=== PATIENT | male | born 1950 | race Caucasian/White ===

== ENCOUNTER 2017-09-24 14:27 | Outpatient (CLI) | payer OTHER ==
--- NOTE | 2017-09-24 16:29 | MRI ---
MRI OF LEFT SHOULDER PERFORMED WITHOUT CONTRAST ENHANCEMENT: Date: 09/24/17 HISTORY: Shoulder injury. FINDINGS: Some moderate AC joint hypertrophic change is present. There is extensive rotator cuff tear. This is a complete far anterior tear. AP dimension of the full thickness component of this tear approximates 9-10 mm. Some of the more outer bursal fibers are minim ally retracted, although there is retraction of the majority of the undersurface fibers by also appro ximately 10.0 mm. This extends as an undersurface tear into the supra and infraspinatus tendon region s and has a delaminating component extending into the musculotendinous junction of the infraspinatus tendon. There is also suggestion of involvement of the superior fibers of the subscapularis tendon, w hich are very thin in appearance. Biceps tendon does maintain a normal position within the bicipital groove. The interarticular portion of the biceps tendon is severely tendinopic in appearance and ther e is marked irregularity to the labrum near the biceps anchor attachment. There is a mass which follows fat density seen along the lateral aspect of the proximal humeral shaft . It is along the deep surface of the lateral or acromial component of the deltoid muscle. It measure s approximately 5.6 cm in size. It does not have any concerning features such as thickened septations or soft tissue mass component. There is rotator cuff atrophy with moderately severe atrophy of the subscapularis muscle. There is so me very mild atrophy of the infraspinatus and fairly pronounced atrophy of the teres minor muscle. Th ere is also moderate atrophy of the teres major muscle. IMPRESSION: 1. Full thickness, partial width, far anterior supraspinatus tendon. This tear does extend as a mode rate grade undersurface tear through the posterior half of the supraspinatus tendon, as well as into the infraspinatus tendon, where it has a delaminating component with fluid extending to the musculote ndinous junction. In addition, there is a partial tear of the superior fibers of the subscapularis te ndon. Biceps tendon does maintain normal position within the bicipital groove. 2. Moderate atrophy of the subscapularis muscle with some mild atrophy of the infraspinatus muscle. There is also fairly pronounced atrophy of the teres minor and teres major muscles. There is prominen t fat interspersed within the muscle planes. 3. Lipoma lying deep to the acromial or lateral aspect of the deltoid muscle which measures 5.6 cm i n size. It has overall benign-appearing features. 4. Very tendinopathic appearance to the interarticular portion of the biceps tendon with posterior s uperior labral degenerative tearing. POS: [facility]
== END 2017-09-24 14:28 | disposition home or self-care (01) ==
LOC: MRI 14:27
PROVIDERS: ATTEND Orthopaedic Surgery
DX: M25.512 Pain in left shoulder (principal); M75.102 Unspecified rotator cuff tear or rupture of left shoulder, not specified as traumatic; M62.512 Muscle wasting and atrophy, not elsewhere classified, left shoulder; D17.79 Benign lipomatous neoplasm of other sites

== ENCOUNTER 2017-11-26 10:24 | Outpatient (CLI) | payer OTHER ==
[2017-11-26 11:54] LABS: Hemoglobin 12.3 g/dL (14.0-18.0); Mean Corpuscular Hemoglobin 32.8 pg (27.0-31.0); Mean Corpuscular Volume 99.4 fl (80.0-94.0); Platelet Count 216 thou/uL (130-400); RBC Distribution Width 13.6 % (11.5-14.5); Red Blood Cell (RBC) Count 3.75 mill/uL (4.70-6.10); White Blood Cell (WBC) Count 6.1 thou/uL (4.8-10.8)
[2017-11-26 12:10] LABS: Anion Gap 10 mmol/L (10-20); BUN (Urea Nitrogen) 23 mg/dL (8.4-25.7); Calc. Creatinine Clearance 0 mL/min (70-130); Calcium 8.6 mg/dL (7.8-10.44); Carbon Dioxide 21 mmol/L (23-31); Chloride 108 mmol/L (98-107); Estimated GFR-MDRD 72; Glucose 156 mg/dL (80-115); Potassium 4.3 mmol/L (3.5-5.1); Sodium 135 mmol/L (136-145)
--- NOTE | 2017-11-26 20:28 | EKG ---
Test Reason : Blood Pressure : / mmHG Vent. Rate : 058 BPM Atrial Rate : 058 BPM P-R Int : 198 ms QRS Dur : 100 ms QT Int : 414 ms P-R-T Axes : 041 004 033 degrees QTc Int : 406 ms Sinus bradycardia Low voltage QRS Cannot rule out Anterior infarct , age undetermined Abnormal ECG When compared with ECG of 15-OCT-2016 13:36, QT has shortened Confirmed by MARY ELLEN LION (2) on 11/26/2017 8:27:42 PM Referred By: KIM Confirmed By:MARY ELLEN LION
== END 2017-11-26 10:25 | disposition home or self-care (01) ==
LOC: LABBT 10:24
PROVIDERS: ATTEND Orthopaedic Surgery
DX: Z01.818 Encounter for other preprocedural examination (principal); M75.102 Unspecified rotator cuff tear or rupture of left shoulder, not specified as traumatic; R94.31 Abnormal electrocardiogram [ECG] [EKG]
CPT/HCPCS: 80048; 85027; 93005; 93010

== ENCOUNTER 2017-11-27 05:38 | Day surgery (SDC) | payer OTHER ==
[2017-11-26 11:03] VITALS: BMI 43.2
[2017-11-27] MEDS ORDERED: CEFAZOLIN/Water 2 GM/20 ML SYRINGE ONE (06:17)
[2017-11-27] MEDS ORDERED: Midazolam HCl 2 mg/2 ml Vial ONE (06:18)
[2017-11-27] MEDS ORDERED: Fentanyl 100 MCG/2 ML VIAL ONE ×2 (06:18→06:55)
[2017-11-27] MEDS ORDERED: Lidocaine 2% Jelly 5 ML TUBE ONE (06:56)
[2017-11-27] MEDS ORDERED: Zolpidem Tartrate 5 MG TAB PO PRN (07:39)
[2017-11-27] MEDS ORDERED: Promethazine HCl 25 MG/ML VIAL IM PRN (07:39)
[2017-11-27] MEDS ORDERED: Ropivacaine HCl/PF 1,100 MG in Sodium Chloride 0.9% 440 ML NERVE BLCK SCH (07:39)
[2017-11-27] MEDS ORDERED: Ondansetron HCl/PF 4 MG/2 ML Vial IVP PRN (07:39)
[2017-11-27] MEDS ORDERED: traMADol HCl 50 MG TAB PO PRN ×2 (07:39)
[2017-11-27] MEDS ORDERED: HYDROcodone/Acetaminophen 10/325 mg Tablet PO PRN ×2 (07:39)
[2017-11-27] MEDS ORDERED: Fentanyl 100 MCG/2 ML VIAL IV PRN (07:39)
[2017-11-27] MEDS ORDERED: Bupivacaine/Epinephrine 0.25% 30 ML VIAL ONE (07:54)
[2017-11-27] MEDS ORDERED: PROPOFOL 200 MG/20 ML VIAL ONE (09:52)
[2017-11-27] MEDS ORDERED: Glycopyrrolate 0.2 MG/ML 5 ML SYRINGE ONE (09:52)
[2017-11-27] MEDS ORDERED: Ketorolac Tromethamine 30 MG/ML VIAL ONE (09:52)
[2017-11-27] MEDS ORDERED: ePHEDrine/0.9% NaCl/PF SYRINGE 50 mg/10 ml ONE (09:52)
[2017-11-27] MEDS ORDERED: Ondansetron HCl/PF 4 MG/2 ML Vial ONE (09:52)
[2017-11-27] MEDS ORDERED: Lidocaine 1% PF 5 ML VIAL ONE (09:52)
[2017-11-27] MEDS ORDERED: Ropivacaine 0.5% HCl/PF (150 MG/30 ML VIAL) ONE (11:51)
[2017-11-27] MEDS ORDERED: Ropivacaine 0.2% HCl/PF (40 MG/20 ML VIAL) ONE (11:51)
--- NOTE | 2017-11-27 15:04 | OP ---
DATE OF SURGERY: 11/27/2017 PREOPERATIVE DIAGNOSES: Full thickness tear, supraspinatus with partial thickness tear of the subsca pularis, biceps tendinosis, atrophy of subscapularis and atrophy of infraspinatus. POSTOPERATIVE DIAGNOSES: 1. High grade full thickness tear supraspinatus. 2. Partial tear, subscapularis. 3. Long head of the biceps rupture. 4. Grade III changes noted, glenoid and humeral head. PROCEDURES PERFORMED: 1. Left rotator cuff repair, arthroscopic. 2. Subacromial decompression. STAFF: Aidan Coronado M.D. CUSTOMIZER: None. ANESTHESIA: Cuong Johnson. The patient received general endotracheal intubation and interscalene block . ESTIMATED BLOOD LOSS: 30 mL. TOURNIQUET TIME: None. IMPLANTS: A 5.5 Arthrex, 5.5 Bio[employer]posite corkscrew and 5.5 SwiveLock. ANTIBIOTICS: Ancef 2 grams. COMPLICATIONS: None. HISTORY OF PRESENT ILLNESS: Mr. No is a pleasant 67-year-old male who presented to me with shou lder pain for about 6 months. The patient had pain, probably some bruising. MRI showed a full thick ness tear with previous biceps rupture. I discussed with patient the risks and benefits of arthrosco pic evaluation of rotator cuff repair to include pain, scar, bleeding, infection, damage to vital str uctures, decreased range of motion or strength, failure of procedure, continued pain despite surgical intervention. The patient understood the risks and benefits and elected to proceed. DESCRIPTION OF PROCEDURE: Time out was performed designating the patient's left upper extremity as t he operative site based on sight, consents, and markings. After time out, the patient's upper extrem ity was prepped and draped in sterile fashion. A posterior working portal and anterior working jey l placed and visualized intraarticularly. There was some grade III ALS full thickness changes throug hout the patient's humeral head as well as the glenoid. There were no large osteophytes or loose bod ies noted within the joint. The biceps had ruptured off. There was some synovitis noted within the joint and I could see an area where the cuff was torn intraarticularly. I debrided off some remnant tissues and moved subacromially and debrided the bursa and had a difficult time finding, what I could see on MRI was a high grade full thickness tear. I went back and tagged with a Prolene, stitched an d find the area and was able to fall into the full thickness defect and supraspinatus, which I cleane d off and created. I then did a subacromial decompression to smooth off the patient's acromion, rele ased the CA ligament, exposed entire rotator cuff, placed 5.5 corkscrew into the defect, put 2 horizo ntal mattress sutures and 1 anterior and 1 posterior, sewed them down and then used a double row late ral transosseous equivalent to help to sew it down laterally. I then took final pictures, washed and closed with 3-0 nylon. The patient will be placed in a shoulder abduction sling. Begin elbow, wrist, and hand motion, will follow with me in 2 weeks.
== END 2017-11-27 13:02 | disposition home or self-care (01) ==
LOC: SDC 05:38
PROVIDERS: ATTEND Orthopaedic Surgery
PROC: 0LQ24ZZ Repair Left Shoulder Tendon, Percutaneous Endoscopic Approach (ICD-10-PCS; principal; 2017-11-27)
PROC: 0RNK4ZZ Release Left Shoulder Joint, Percutaneous Endoscopic Approach (ICD-10-PCS; principal; 2017-11-27)
DX: M75.122 Complete rotator cuff tear or rupture of left shoulder, not specified as traumatic (principal); S46.112A Strain of muscle, fascia and tendon of long head of biceps, left arm, initial encounter; M65.812 Other synovitis and tenosynovitis, left shoulder; M19.012 Primary osteoarthritis, left shoulder; E11.9 Type 2 diabetes mellitus without complications; Z79.82 Long term (current) use of aspirin; Z79.84 Long term (current) use of oral hypoglycemic drugs; Z79.899 Other long term (current) drug therapy
CPT/HCPCS: C1713; J1885; J2001; J2250; J2405; J2704; J2795; J3010; J7050

== ENCOUNTER 2018-05-15 07:42 | Outpatient (CLI) | payer OTHER ==
--- NOTE | 2018-05-15 12:42 | MRI ---
MRI OF RIGHT SHOULDER PERFORMED WITHOUT CONTRAST ENHANCEMENT: HISTORY: Right shoulder pain. FINDINGS: There are moderate AC joint hypertrophic changes present. There is a full-thickness partial width yin praspinatus tendon tear. The full-thickness component of the tear involves more the anterior aspect of the tendon. It is retracted by approximately 7 mm with the AP dimension of the full-thickness com ponent of the tear in the 10 mm range. This does continue as an undersurface tear involving the post erior fibers also with tendinopathy change. There is a minimal delaminating component extending into the infraspinatus tendon which is otherwise intact. The subscapularis tendon is very thinned in appearance but appears intact and the biceps tendon is no rmal in position within the bicipital groove. I do not definitely see an intraarticular portion of t he biceps tendon. No definitive labral abnormalities are appreciated. There are some mild arthritic changes of the gle nohumeral joint space. There is mild atrophy to the infraspinatus muscle as well as supraspinatus muscles. There is severe atrophy of the teres minor muscle and marked atrophy to the subscapularis muscle. IMPRESSION: 1. Full-thickness partial-width supraspinatus tendon tear as discussed above. The tear does extend into the posterior half of the supraspinatus tendon and is a moderate undersurface tear and has some delaminating component as there is fluid seen at the musculotendinous junction of the infraspinatus. There is mild atrophy of the supra- and infraspinatus muscles. There is severe atrophy of the teres minor and superior half of the subscapularis muscles. 2. The intraarticular portion of the biceps tendon is not definitely identified. The biceps tendon within the bicipital groove is smaller. POS: [facility]
== END 2018-05-15 07:43 | disposition home or self-care (01) ==
LOC: TBSIIMAG 07:42
PROVIDERS: ATTEND Orthopaedic Surgery
DX: M25.511 Pain in right shoulder (principal); M75.101 Unspecified rotator cuff tear or rupture of right shoulder, not specified as traumatic

== ENCOUNTER 2025-03-10 08:00 | Outpatient (CLI) | payer OTHER ==
[2025-03-10 12:47] LABS: #Basophils 0.04 10x3/uL (0.0-0.2); #Eosinophils 0.15 10x3/uL (0.0-0.7); #Monocytes 0.33 10x3/uL (0.11-0.59); #Neutrophils 3.48 10x3/uL (1.40-6.50); %Basophils 0.8 % (0.0-1.0); %Eosinophils 2.8 % (0.0-10.0); %Lymphocytes 23.9 % (21.0-51.0); %Monocytes 6.3 % (0.0-10.0); %Neutrophils 65.8 % (42.0-75.0); Hematocrit 36.0 % (42.0-52.0); Hemoglobin 11.2 g/dL (14.0-18.0); Mean Corpuscular Hemoglobin 28.6 pg (27.0-31.0); Mean Corpuscular Volume 92.1 fL (78.0-98.0); Platelet Count 179 10x3/uL (130-400); Red Blood Cell (RBC) Count 3.91 mill/uL (4.70-6.10); White Blood Cell (WBC) Count 5.28 10x3/uL (4.8-10.8)
[2025-03-10 13:13] LABS: INR-International Normal Ratio 1.1; Prothrombin Time 14.0 sec (12.0-14.7)
[2025-03-10 13:29] LABS: Anion Gap 15 mmol/L (10-20); BUN (Urea Nitrogen) 108 mg/dL (8.4-25.7); Calc. Creatinine Clearance 0 mL/min (70-130); Calcium 9.1 mg/dL (7.8-10.44); Carbon Dioxide 16 mmol/L (23-31); Chloride 107 mmol/L (98-107); Glucose 94 mg/dL (83-110); Potassium 6.1 mmol/L (3.5-5.1); Sodium 132 mmol/L (136-145)
== END 2025-03-10 13:52 | disposition home or self-care (01) ==
LOC: LABBT 08:00
PROVIDERS: ATTEND Orthopaedic Surgery
DX: Z01.812 Encounter for preprocedural laboratory examination (principal); M16.12 Unilateral primary osteoarthritis, left hip
CPT/HCPCS: 80048; 85025; 85610; 87081

== ENCOUNTER 2025-03-10 15:35 | Inpatient (IN) | payer OTHER ==
[2025-03-10 16:15] LABS: #Basophils Less than 0.03 10x3/uL (0.0-0.2); #Eosinophils 0.14 10x3/uL (0.0-0.7); #Monocytes 0.30 10x3/uL (0.11-0.59); #Neutrophils 4.08 10x3/uL (1.40-6.50); %Basophils 0.4 % (0.0-1.0); %Eosinophils 2.5 % (0.0-10.0); %Lymphocytes 18.9 % (21.0-51.0); %Monocytes 5.3 % (0.0-10.0); %Neutrophils 72.5 % (42.0-75.0); Hematocrit 35.8 % (42.0-52.0); Hemoglobin 11.3 g/dL (14.0-18.0); Mean Corpuscular Hemoglobin 28.5 pg (27.0-31.0); Mean Corpuscular Volume 90.4 fL (78.0-98.0); Platelet Count 194 10x3/uL (130-400); Red Blood Cell (RBC) Count 3.96 mill/uL (4.70-6.10); White Blood Cell (WBC) Count 5.62 10x3/uL (4.8-10.8)
[2025-03-10 16:46] LABS: ALT (SGPT) 16 U/L (Less than 45); AST (SGOT) 20 U/L (11-34); Albumin 3.8 g/dL (3.1-4.5); Alkaline Phosphatase 101 U/L (40-110); Anion Gap 15 mmol/L (10-20); BUN (Urea Nitrogen) 107 mg/dL (8.4-25.7); Bilirubin, Total 0.4 mg/dL (0.3-1.2); Calc. Creatinine Clearance 0 mL/min (70-130); Calcium 9.3 mg/dL (7.8-10.44); Carbon Dioxide 16 mmol/L (23-31); Chloride 107 mmol/L (98-107); Globulin 3.5 g/dL (2.4-3.5); Glucose 103 mg/dL (83-110); Potassium 6.3 mmol/L (3.5-5.1); Sodium 132 mmol/L (136-145)
[2025-03-10] MEDS ORDERED: Senokot S 8.6-50 MG TAB PO PRN (17:52)
[2025-03-10] MEDS ORDERED: Ondansetron PF 4 MG/2 ML Vial IVP PRN (17:52)
[2025-03-10] MEDS ORDERED: Electrolyte Replacement Protocol 1 EACH FS SCH (18:00)
[2025-03-10] MEDS ORDERED: CALCIUM GLUC 1 GM/NS 50 ML IV Bag ONE (18:06)
[2025-03-10] MEDS ORDERED: Dextrose 50% Abboject 50 ML SYRINGE SLOW IVP PRN (18:27)
[2025-03-10] MEDS ORDERED: Glucagon 1 MG/ML KIT IM PRN (18:27)
[2025-03-10 21:53] VITALS: BMI 30.7
[2025-03-10] MEDS: LOKELMA 10 GM PACKET PO SCH (21:57)
[2025-03-10] MEDS: Insulin Glargine 30 UNITS/0.3 ML VIAL SC SCH (22:13)
[2025-03-10 22:40] LABS: Potassium 5.1 mmol/L (3.5-5.1)
[2025-03-10] MEDS: Dextrose 50% Abboject 50 ML SYRINGE SLOW IVP SCH (23:30)
[2025-03-11 05:09] LABS: Anion Gap 12 mmol/L (10-20); BUN (Urea Nitrogen) 84 mg/dL (8.4-25.7); Calc. Creatinine Clearance 44 mL/min (70-130); Calcium 9.1 mg/dL (7.8-10.44); Carbon Dioxide 16 mmol/L (23-31); Chloride 113 mmol/L (98-107); Glucose 84 mg/dL (83-110); Potassium 4.7 mmol/L (3.5-5.1); Sodium 136 mmol/L (136-145)
[2025-03-11] MEDS: LOKELMA 10 GM PACKET PO SCH (08:21)
[2025-03-11] MEDS: Sertraline 25 MG TAB PO SCH (08:21)
[2025-03-11] MEDS: Enoxaparin 40 MG (0.4 mL) SYRINGE SC SCH (08:21)
[2025-03-11] MEDS: Aspirin 81 mg Enteric Coated Tablet PO SCH (08:21)
[2025-03-11] MEDS: Sodium Bicarbonate Tab 325 MG TAB PO SCH (10:26)
[2025-03-11] MEDS: Calcium Carbonate 500 MG ChewTAB PO PRN (10:26)
[2025-03-11] MEDS: Pantoprazole 40 MG DR.TAB PO SCH (11:43)
[2025-03-11] MEDS: Sodium Bicarbonate 75 MEQ in Dextrose 5 %-0.45 % NaCl 1,000 ML IV SCH (11:50)
[2025-03-11 13:09] LABS: Anion Gap 19 mmol/L (10-20); BUN (Urea Nitrogen) 87 mg/dL (8.4-25.7); Calc. Creatinine Clearance 46 mL/min (70-130); Calcium 9.0 mg/dL (7.8-10.44); Carbon Dioxide 11 mmol/L (23-31); Chloride 111 mmol/L (98-107); Glucose 153 mg/dL (83-110); Potassium 5.0 mmol/L (3.5-5.1); Sodium 136 mmol/L (136-145)
[2025-03-11 14:17] LABS: Actual Bicarbonate (HCO3v) 16.7 mEq/L (22-28); Base Excess -6.6 mEq/L (-2.0 to +3.0); Calcium, Ionized (venous) 1.05 mmol/L (1.16-1.32); Chloride (VBG) 108 mmol/L (98-106); Hematocrit-VBG 37 % (42.0-52.0); Hemoglobin (Hb) 12.6 g/dL (12.6-17.4); Potassium (VBG) 5.08 mmol/L (3.70-5.30); Sodium 135 mmol/L (133-146)
[2025-03-11 20:55] LABS: Anion Gap 8 mmol/L (10-20); BUN (Urea Nitrogen) 81 mg/dL (8.4-25.7); Calc. Creatinine Clearance 56 mL/min (70-130); Calcium 8.8 mg/dL (7.8-10.44); Carbon Dioxide 18 mmol/L (23-31); Chloride 114 mmol/L (98-107); Glucose 131 mg/dL (83-110); Potassium 5.1 mmol/L (3.5-5.1); Sodium 135 mmol/L (136-145)
[2025-03-12 05:27] LABS: #Basophils 0.03 10x3/uL (0.0-0.2); #Eosinophils 0.19 10x3/uL (0.0-0.7); #Monocytes 0.36 10x3/uL (0.11-0.59); #Neutrophils 3.69 10x3/uL (1.40-6.50); %Basophils 0.5 % (0.0-1.0); %Eosinophils 3.5 % (0.0-10.0); %Lymphocytes 21.8 % (21.0-51.0); %Monocytes 6.6 % (0.0-10.0); %Neutrophils 67.4 % (42.0-75.0); Hematocrit 32.7 % (42.0-52.0); Hemoglobin 10.5 g/dL (14.0-18.0); Mean Corpuscular Hemoglobin 29.1 pg (27.0-31.0); Mean Corpuscular Volume 90.6 fL (78.0-98.0); Platelet Count 152 10x3/uL (130-400); Red Blood Cell (RBC) Count 3.61 mill/uL (4.70-6.10); White Blood Cell (WBC) Count 5.47 10x3/uL (4.8-10.8)
[2025-03-12 05:53] LABS: ALT (SGPT) 15 U/L (Less than 45); AST (SGOT) 19 U/L (11-34); Albumin 3.2 g/dL (3.1-4.5); Alkaline Phosphatase 86 U/L (40-110); Anion Gap 15 mmol/L (10-20); BUN (Urea Nitrogen) 75 mg/dL (8.4-25.7); Bilirubin, Total 0.5 mg/dL (0.3-1.2); Calc. Creatinine Clearance 59 mL/min (70-130); Calcium 8.9 mg/dL (7.8-10.44); Carbon Dioxide 21 mmol/L (23-31); Chloride 110 mmol/L (98-107); Globulin 2.9 g/dL (2.4-3.5); Glucose 90 mg/dL (83-110); Potassium 4.6 mmol/L (3.5-5.1); Sodium 141 mmol/L (136-145)
[2025-03-12] MEDS: Pantoprazole 40 MG DR.TAB PO SCH (09:09)
[2025-03-12 19:25] LABS: Bacteria/HPF 4+ HPF (None Seen); Glucose, Urine (Dipstick) 300 mg/dL (Negative); Leukocyte 500 Leu/uL (Negative); Protein, Urine (Dipstick) 20 mg/dL (Neg-Trace); RBC/HPF 0-3 HPF (0-3); Specific Gravity, Urine 1.014 (1.002-1.036); WBC/HPF Greater than 50 HPF (0-3)
[2025-03-12 19:44] LABS: Potassium, Urine 32.9 mmol/L; Sodium, Urine Less than 20 mmol/L (Not Available)
[2025-03-12 19:49] LABS: Protein, Urine Random Quant 24.0 mg/dL (1-14)
[2025-03-13] MEDS: Acetaminophen 325 MG TAB PO PRN (02:49)
[2025-03-13 05:45] LABS: ALT (SGPT) 16 U/L (Less than 45); AST (SGOT) 21 U/L (11-34); Albumin 3.7 g/dL (3.1-4.5); Alkaline Phosphatase 104 U/L (40-110); Anion Gap 13 mmol/L (10-20); BUN (Urea Nitrogen) 63 mg/dL (8.4-25.7); Bilirubin, Total 0.8 mg/dL (0.3-1.2); Calc. Creatinine Clearance 58 mL/min (70-130); Calcium 9.2 mg/dL (7.8-10.44); Carbon Dioxide 20 mmol/L (23-31); Chloride 106 mmol/L (98-107); Globulin 3.3 g/dL (2.4-3.5); Glucose 116 mg/dL (83-110); Potassium 4.2 mmol/L (3.5-5.1); Sodium 135 mmol/L (136-145)
[2025-03-13 11:30] VITALS: BP 100/57; TEMP 97.6
[2025-03-15 10:14] LABS: Kappa Lambda Light Chain Ratio 1.33 (0.26-1.65)
== END 2025-03-13 13:18 | disposition home or self-care (01) | DRG 683 ==
LOC: ERS 15:35 → 2NO 17:47 → OBSVTOIN 03-11 12:48
PROVIDERS: ADMIT Family Medicine; ATTEND Student in an Organized Health Care Education/Training Program
DX: N17.9 Acute kidney failure, unspecified (principal); E87.20 Acidosis, unspecified; I13.0 Hypertensive heart and chronic kidney disease with heart failure and stage 1 through stage 4 chronic kidney disease, or unspecified chronic kidney disease; E87.5 Hyperkalemia; E78.5 Hyperlipidemia, unspecified; E11.9 Type 2 diabetes mellitus without complications; D64.9 Anemia, unspecified; M19.90 Unspecified osteoarthritis, unspecified site; Z98.890 Other specified postprocedural states; I50.9 Heart failure, unspecified; N40.0 Benign prostatic hyperplasia without lower urinary tract symptoms; K21.9 Gastro-esophageal reflux disease without esophagitis; F43.10 Post-traumatic stress disorder, unspecified; N18.30 Chronic kidney disease, stage 3 unspecified; E88.09 Other disorders of plasma-protein metabolism, not elsewhere classified; I95.9 Hypotension, unspecified; Z79.899 Other long term (current) drug therapy
CPT/HCPCS: 36415; 36416; 76770; 80048; 80053; 81001; 82043; 82436; 82533; 82550; 82570; 82805; 83605; 83883; 84133; 84156; 84300; 84443; 84484; 85025; 93005; 96365; 96372; 96375; G0378; J0613; J1650; J1815; J7030; J7042